=== PATIENT | male | born 1975 | race Caucasian/White ===

== ENCOUNTER 2021-09-20 17:27 | Inpatient (IN) | payer OTHER ==
[~2021-09-20] VITALS: Ht 157.5 cm; Wt 44.0 kg
[2021-09-20 17:37] VITALS: BP_SYST 118
--- NOTE | 2021-09-20 17:37 | NUR ---
pt. bib brother with concerns of pain from suprapubic catheter, pt. has 100.6 temp and tachycardic, concerned about infection
--- NOTE | 2021-09-20 17:53 | NUR ---
Pt. remains in WR, urine specimen obtained and sent to lab
[2021-09-20] MEDS ORDERED: cefTRIAXone 1 GM IVPB PREMIX 50 ML IV ONE ×2 (18:00→23:08)
--- NOTE | 2021-09-20 18:00 | NUR ---
ER at bedside examining patient.
--- NOTE | 2021-09-20 18:14 | NUR ---
Patient to ER bed 7 to gown for evaluation. Side rails up. Report given to Susie.
[2021-09-20 18:54] LABS: BILIRUBIN,URINE NEGATIVE (NEGATIVE); BLOOD, URINE 3+ (NEGATIVE); CLARITY/URINE TURBID (CLEAR); COLOR,URINE BROWN (YELLOW); GLUCOSE,URINE NEGATIVE (NEGATIVE); KETONES,URINE NEGATIVE (NEGATIVE); LEUKOCYTE ESTERASE ,URINE 3+ (NEGATIVE); NITRITE, URINE NEGATIVE (NEGATIVE); PH,URINE 6.5 (5.0-8.0); PROTEIN URINE 3+ (NEGATIVE); UROBILINOGEN,URINE 0.2 (0.2-1.0)
--- NOTE | 2021-09-20 18:54 | NUR ---
Pt bib brother from home, pt c/o urinary tract infection notes dysuria and burning sensation. Pt pain scale 8/10. PMH Dialysis left arm stoma
[2021-09-20 18:57] LABS: RBC,URINE >100 /HPF (0-3); WBC,URINE >100 /HPF (0-3)
[2021-09-20 18:58] LABS: BACTERIA,URINE MANY /HPF (None Seen)
--- NOTE | 2021-09-20 18:58 | NUR ---
Covid swab done and sent to lab.
--- NOTE | 2021-09-20 19:15 | NUR ---
# 20 gauge angiocath placed to RIGHT ac. Use of asceptic technique. Opsite placed over site. Blood return noted. Blood for lab drawn from site. Flushed with 10 cc of normal saline. No evidence of infiltration noted. Patient tolerated well.
[2021-09-20 19:44] LABS: BASOPHILS # (AUTO) 0.1 K/uL (0.0-0.2); BASOPHILS % (AUTO) 0.7 % (0.0-2.0); EOSINOPHILS % (AUTO) 0.3 % (0.0-4.0); HEMATOCRIT 32.6 % (36-54); HEMOGLOBIN 10.8 g/dL (14.0-18.0); LYMPHOCYTES # (AUTO) 0.4 K/uL (1.0-5.5); LYMPHOCYTES % (AUTO) 4.6 % (20.5-51.5); MEAN CORPUSCULAR HEMOGLOBIN 30 pg (27-31); MEAN CORPUSCULAR HGB CONC 33 % (32-36); MEAN CORPUSCULAR VOLUME 90 fL (79.0-98.0); MONOCYTES # (AUTO) 0.6 K/uL (0.0-1.0); MONOCYTES % (AUTO) 7.4 % (1.7-9.3); NEUTROPHILS # (AUTO) 7.3 K/uL (1.8-7.7); PLATELET COUNT (AUTO) 193 K/uL (130-430); RED BLOOD CELL COUNT(AUTO) 3.63 MIL/uL (4.2-6.2); RED CELL DISTRIBUTION WIDTH 14.8 % (9.0-15.0); WHITE BLOOD COUNT (AUTO) 8.4 K/uL (4.8-10.8)
[2021-09-20 19:48] LABS: POTASSIUM 5.3 mmol/L (3.5-5.1)
[2021-09-20 19:52] LABS: CALCIUM 6.3 mg/dL (8.4-11.0)
[2021-09-20 19:53] LABS: CREATININE 10.4 mg/dL (0.55-1.30)
[2021-09-20 20:06] LABS: ALBUMIN 3.2 g/dL (3.4-4.8); TOTAL BILIRUBIN 0.3 mg/dL (0.0-1.0)
--- NOTE | 2021-09-20 20:28 | NUR ---
Admit bed requested Patient will be admitted to care of . Admitted to MED SURG unit. Diagnosis UTI/SEPSIS Inpatient (Yes or No) YES Orientation concerns or request close to nursing station (Yes or No) NO Covid Status - From Home (Yes or if No enter name of facility) Y Requires Dialysis (Yes or No) YES
[2021-09-20] MEDS: cefTRIAXone 1 GM in D5W 50 ML IV SCH (21:09)
[2021-09-20] MEDS: KCL 20 mEq in D5/0.45NS 1000mL 1,000 ML IV SCH ×2 (21:17→21:55)
--- NOTE | 2021-09-20 21:53 | NUR ---
Patient will be admitted to care of MD Villagomez. Admitted to MED SURG unit. Will go to room 133A. Belongings list completed. Complete and up to date summary report printed. SBAR report given at bedside to CLIFF Sol with opportunity for questions.
--- NOTE | 2021-09-20 21:55 | NUR ---
ORDER RECEIVED FOR POTASSIUM 20 MEQ IVF; IVF HELD DUE TO POTASSIUM LEVEL ELEVATED AT 5.3 MD KEITH PAGED. ENDORSED TO RECEIVING NURSE IN [facility]SURGE TO FOLLOW UP.
--- NOTE | 2021-09-20 22:10 | NUR ---
ADMISSION NOTE Received patient from ER via wheel chair. Patient admitted with diagnosis of UTI,SEPSIS. Patient is awake, alert, oriented X 4. Patient oriented to hospital room, call light, toileting, pain management and safety-teach back done. Patient informed that Trung Kurtz will be Noc shift nurse and that their room number is 133A. Personal belongings checked and Belongings List documented. Call light within reach.
[2021-09-20 22:17] VITALS: BP_SYST 148
[2021-09-20] MEDS ORDERED: NALOXONE HCL 0.4 MG/ML AMP (NARCAN) IVP PRN (22:30)
--- NOTE | 2021-09-20 22:30 | NUR ---
Dr. Poole is in the facility and doing round. was updated on patient current labs, and doctor visited the patient and assessed him at bed side. Dr. Poole updated patient orders.
[2021-09-20 22:53] VITALS: BP_SYST 148
[2021-09-20] MEDS: HYDROcodone/ACETAMIN 5-325 MG TAB (NORCO/ VICODIN) PO PRN (22:58)
--- NOTE | 2021-09-21 04:58 | NUR ---
CONSULTATION PAGED/CALLED Reason for Consultation: RENAL FAILURE Person Who was Notified: MINH Consulting Physician: TAWNY Pallet Stone Positioner Specialty: Ordering Physician: INNA
--- NOTE | 2021-09-21 06:58 | NUR ---
CLOSING NOTES: Patient is in bed resting no s/s of distress is noted at this time, Chest rise is even and unlabored on RA. Patient is able to communicate needs and denies any pain or discomfort at this time. All current shift needs have been met and safety protocols are in place. Will differ current care to AM shift for continuity of care.
[2021-09-21 07:39] LABS: BASOPHILS % (AUTO) 0.6 % (0.0-2.0); EOSINOPHILS # (AUTO) 0.1 K/uL (0.0-0.4); EOSINOPHILS % (AUTO) 2.1 % (0.0-4.0); HEMOGLOBIN 9.7 g/dL (14.0-18.0); LYMPHOCYTES # (AUTO) 0.8 K/uL (1.0-5.5); LYMPHOCYTES % (AUTO) 10.6 % (20.5-51.5); MEAN CORPUSCULAR HEMOGLOBIN 29 pg (27-31); MEAN CORPUSCULAR HGB CONC 33 % (32-36); MEAN CORPUSCULAR VOLUME 90 fL (79.0-98.0); MONOCYTES # (AUTO) 0.8 K/uL (0.0-1.0); MONOCYTES % (AUTO) 10.5 % (1.7-9.3); NEUTROPHILS # (AUTO) 5.5 K/uL (1.8-7.7); NEUTROPHILS % (AUTO) 76.2 % (40.0-70.0); PLATELET COUNT (AUTO) 158 K/uL (130-430); RED BLOOD CELL COUNT(AUTO) 3.32 MIL/uL (4.2-6.2); RED CELL DISTRIBUTION WIDTH 14.5 % (9.0-15.0); WHITE BLOOD COUNT (AUTO) 7.2 K/uL (4.8-10.8)
[2021-09-21 08:00] VITALS: BP_SYST 123
--- NOTE | 2021-09-21 08:00 | NUR ---
Initial Note Patient in bed, awake, alert, and oriented. Obtained VS within the norm. No complaints of pain. No distress noted. Patient is eating breakfast. Safety Precautions in place and call light within reach.
[2021-09-21 08:03] LABS: CALCIUM 6.2 mg/dL (8.4-11.0); CREATININE 10.57 mg/dL (0.55-1.30)
--- NOTE | 2021-09-21 11:00 | NUR ---
Consult Dr. Grider see pt ordered to urology consult.
--- NOTE | 2021-09-21 11:10 | NUR ---
CONSULT: UROLOGY SUPRAPUBIC CATHETER NOT WORKING DR. MARLENY SIMMONS S/W: DORIS, OFFICE STAFF
[2021-09-21 12:09] VITALS: BP_SYST 109
[2021-09-21] MEDS: HYDROcodone/ACETAMIN 5-325 MG TAB (NORCO/ VICODIN) PO PRN ×2 (15:21→21:18)
--- NOTE | 2021-09-21 16:00 | NUR ---
Notes Patient has been cleaned and repositioned. States pain 10/19. Medicated. Safety precautions in place and aware to call for assistance. Call light in hand.
--- NOTE | 2021-09-21 16:10 | NUR ---
Notes Patient on dialysis.
[2021-09-21 16:11] VITALS: BP_SYST 112
--- NOTE | 2021-09-21 18:56 | NUR ---
closing notes patient is still on dialysis, unable to empty suprapubic catheter at this time. will endorse. dialysis output 1.5L.
[2021-09-21 19:00] VITALS: BP_SYST 134
[2021-09-21 20:00] VITALS: BP_SYST 134
[2021-09-22 00:27] VITALS: BP_SYST 135
[2021-09-22] MEDS: HYDROcodone/ACETAMIN 5-325 MG TAB (NORCO/ VICODIN) PO PRN ×3 (12:45→23:28)
--- NOTE | 2021-09-22 15:26 | NUR ---
Dietitian Recommendations * Regular diet, Ensure Enlive BID (ONS yields 700 kcal/day, 40 gm protein/day) * Encourage increase PO intakes LP, RD Please refer to Nutrition Assessment for details. Addendum: 09/22/21 at [address] Amended: Links added. Addendum: 09/22/21 at [address] CORRECTION: Dietitian Recommendations * Continue Regular diet, FR 1200, PRO 60 gms * Encourage increase PO intakes LP, RD Please refer to Nutrition Assessment for details.
[2021-09-22] MEDS: cefTRIAXone 1 GM in D5W 50 ML IV SCH ×2 (21:30→23:30)
[2021-09-22] MEDS: ACETAMINOPHEN 325 MG TABLET PO PRN (23:27)
[2021-09-23 00:17] VITALS: BP_SYST 120
--- NOTE | 2021-09-23 01:02 | NUR ---
PT REFUSED THE REMOVAL OF HIS SUPRA-PUBIC CATHETER STATING HE WANTS TO WANT UNTIL TOMORROW. I EXPLAINED AGAIN TO MAKE SURE PT UNDERSTOOD I WAS NOT TALKING ABOUT REMOVING HIS HERNANDEZ. PT MADE IT CLEAR TO ME THAT HE UNDERSTOOD WHAT I WAS SAYING. DINA GIMENEZ RN
[2021-09-23 07:55] VITALS: BP_SYST 122
[2021-09-23 08:00] VITALS: BP_SYST 122
--- NOTE | 2021-09-23 08:55 | NUR ---
RECEIVED PT LYING IN BED, NO DISTRESS NOTED, DENIES PAIN. SUPRA PUBIC CATH INTACT. F/C INTACT CLEAR EFRAIN URINE STAT LOCK ON. IV SITE TO RT AC SITE CDI, AV SHUNT TO LT FA +BRUT AND THRILL. Addendum: 09/23/21 at 1056 by Yg business support specialist SUPRA PUBIC CATH REMOVED PER DR SIMMONS. NO DRAINAGE NOTED, INSERTION SITE CDI, COVER WITH A GAUZE. Addendum: 09/23/21 at 1606 by Yg business support specialist [id number]: RECEIVED CRITICAL VALUE: ESBL URINE CX. PAGED DR KEITH [phone]. LEFT MASSAGE WITH CALL CENTER [phone]
[2021-09-23 16:45] VITALS: BP_SYST 115
[2021-09-23] MEDS: CALCIUM ACETATE 667 MG CAP PO SCH (18:22)
--- NOTE | 2021-09-23 19:25 | NUR ---
Opening note Received report from CLIFF Laboy. Patient is awake, AOx4 resting in bed, no distress. Nonlabored breathing on room air. IV to RAC is SL. He has a crowe catheter drainage bag to gravity, collecting pink-tinged urine. Bed is locked in lowest position, side rails up, and bed alarm on. Updated board and he was instructed on use of call light.
[2021-09-23 20:00] VITALS: BP_SYST 111
[2021-09-23] MEDS: ACETAMINOPHEN 325 MG TABLET PO PRN (21:05)
--- NOTE | 2021-09-23 21:08 | NUR ---
HEADACHE / TYLENOL Patient reports mild headache, Tylenol administered as ordered. He was reminded of fluid restriction and was given tabs with a cup of water. measured 100ml. Temp was 100.1 temporal scan abd he reports he wants AC on d/t room feels hot. Will ask security to adjust temp. Call light w/in reach, tm
--- NOTE | 2021-09-23 22:15 | NUR ---
reassess Patient reports no longer has headache. Rechecked temp and temporal scan indicates 99.3.
[2021-09-23] MEDS ORDERED: MEROPENEM 500 MG VIAL IV ONE (22:29)
[2021-09-23] MEDS: MEROPENEM 500 MG in NS 50 ML IV SCH (22:42)
--- NOTE | 2021-09-23 22:42 | NUR ---
Antibiotic New antibiotic, Merrem, administered as ordered. Reviewed side effects and he verbalized understanding. Infusing well, no s/sx of infiltration.
[2021-09-24 00:27] VITALS: BP_SYST 102
--- NOTE | 2021-09-24 02:45 | NUR ---
rounds Patient is awake, resting in bed. No distress and wants AC on, will call security. Safety and isolation precautions in place.
[2021-09-24] MEDS: MEROPENEM 500 MG in NS 50 ML IV SCH ×3 (06:39→22:03)
--- NOTE | 2021-09-24 06:45 | NUR ---
med, lab-tech due antibiotic administered, infusing well. reviewed side effects and he verbalized understanding. cartographic technician at bedside for blood draw.
[2021-09-24 08:02] LABS: PHOSPHORUS 7.9 mg/dL (2.7-4.5); POTASSIUM 5.1 mmol/L (3.5-5.1)
[2021-09-24 08:08] LABS: CALCIUM 6.9 mg/dL (8.4-11.0); CREATININE 10.33 mg/dL (0.55-1.30)
[2021-09-24 08:24] VITALS: BP_SYST 121
[2021-09-24] MEDS: CALCIUM ACETATE 667 MG CAP PO SCH ×3 (09:47→17:53)
[2021-09-24 11:03] VITALS: BP_SYST 114
[2021-09-24 16:22] VITALS: BP_SYST 125
--- NOTE | 2021-09-24 17:39 | NUR ---
PATIENT IS STABLE HAD HD DONE TODAY, 1.5 LITERS OUT. ABX WAS ADMINISTERED TO TREAT UTI. PATIENT VITALS REMAINED NORMAL TODAY, NO FEVER, NO SOB, OR MALAISE. PLAN IS TO CONTINUE ABX TREATMENT FOR ESBL URINE. WILL CONTINUE TO MONITOR PATIENT FOR CHANGES IN INFECTION STATUS.
[2021-09-25] MEDS: MEROPENEM 500 MG in NS 50 ML IV SCH (05:45)
[2021-09-25 06:27] LABS: BASOPHILS # (AUTO) 0.1 K/uL (0.0-0.2); EOSINOPHILS # (AUTO) 0.4 K/uL (0.0-0.4); EOSINOPHILS % (AUTO) 4.7 % (0.0-4.0); HEMATOCRIT 33.8 % (36-54); HEMOGLOBIN 10.9 g/dL (14.0-18.0); LYMPHOCYTES # (AUTO) 0.6 K/uL (1.0-5.5); LYMPHOCYTES % (AUTO) 6.4 % (20.5-51.5); MEAN CORPUSCULAR HEMOGLOBIN 29 pg (27-31); MEAN CORPUSCULAR HGB CONC 32 % (32-36); MEAN CORPUSCULAR VOLUME 89 fL (79.0-98.0); MONOCYTES # (AUTO) 0.8 K/uL (0.0-1.0); MONOCYTES % (AUTO) 9.1 % (1.7-9.3); NEUTROPHILS % (AUTO) 78.8 % (40.0-70.0); PLATELET COUNT (AUTO) 239 K/uL (130-430); RED BLOOD CELL COUNT(AUTO) 3.81 MIL/uL (4.2-6.2); RED CELL DISTRIBUTION WIDTH 14.9 % (9.0-15.0); WHITE BLOOD COUNT (AUTO) 8.9 K/uL (4.8-10.8)
[2021-09-25 06:36] LABS: CALCIUM 8.4 mg/dL (8.4-11.0); CREATININE 7.38 mg/dL (0.55-1.30); POTASSIUM 4.2 mmol/L (3.5-5.1)
[2021-09-25 08:00] VITALS: BP_SYST 108
[2021-09-25] MEDS: CALCIUM ACETATE 667 MG CAP PO SCH ×3 (08:45→17:39)
[2021-09-25 12:00] VITALS: BP_SYST 92
--- NOTE | 2021-09-25 14:05 | NUR ---
Discharge Planning: DCP lm for Zofia Lyons [phone] at [facility] Ghazal/Дмитрий Grider making her aware patient needs home health and IV meds. DCP to follow up
[2021-09-25 16:00] VITALS: BP_SYST 126
[2021-09-25 20:00] VITALS: BP_SYST 99
--- NOTE | 2021-09-25 20:00 | NUR ---
Opening notes Pt AAOx4, VSS, no c/o pain. L arm AV shunt with good thrill and bruit. Hawley catheter draining to gravity with tamara urine. IV saline lock R.AC 20 clear and patent. Contact isolation maintained. Bed low, locked, siderails up x2, alarm on. To monitor.
--- NOTE | 2021-09-26 00:25 | NUR ---
Rounds Pt asleep, no s/s distress noted. Hawley catheter draining to gravity. CAll light within reach. Bed low, locked, siderails up x3. To monitor.
[2021-09-26 00:33] VITALS: BP_SYST 118
--- NOTE | 2021-09-26 05:50 | NUR ---
Closing notes Pt asleep, easily awakens, no s/s distress. L. arm AV shunt. Hawley catheter draining to gravity with tamara urine. IV saline lock R.AC 20 clear and patent. Pt to have HD today. Contact isolation maintained. Bed low, locked, siderails up x2, alarm on. To endorse to AM nurse.
[2021-09-26 08:00] VITALS: BP_SYST 104
[2021-09-26 08:21] LABS: CALCIUM 8.1 mg/dL (8.4-11.0); POTASSIUM 4.7 mmol/L (3.5-5.1)
[2021-09-26] MEDS: CALCIUM ACETATE 667 MG CAP PO SCH ×3 (08:23→17:53)
[2021-09-26 08:49] LABS: CREATININE 10.28 mg/dL (0.55-1.30)
[2021-09-26] MEDS ORDERED: MEROPENEM 500 MG in NS 50 ML IV SCH (09:00)
--- NOTE | 2021-09-26 09:03 | NUR ---
Discharge Planning: BART faxed pt referral to [facility] F#[phone] P#[phone] and [facility] F#[phone] P#[phone] BART to follow up. Addendum: 09/26/21 at 1533 by Lalitha SYKES [facility] P#[phone] per [facility]J patient accepted and [facility] P#[phone] medication will be delivered between 8pm and 10pm. BART made JIMMY at [facility] aware. [facility] nurse Deric communicated with home health contact JIMMY. BART made CAITLYN aware.
[2021-09-26 12:17] VITALS: BP_SYST 114
--- NOTE | 2021-09-26 15:33 | NUR ---
pt A/Ox4,vss,HD completed at bedside and removed 1.3L per HD nurse carmela d/c home with home health for IV antibiotic infusion per dr cruz.[facility] home health arranged per manager media heather.IV 20 gauge in right antecubital remains patent and intact and maintained in place for further IV antibiotic therapy also leaves crowe catheter in place per urology consult requests.d/c instruction given and explained to pt.pt verbalized understandings and said he will go to next HD on friday in [facility].family called and notified by patient for clam picker.
[2021-09-26 16:11] VITALS: BP_SYST 102
--- NOTE | 2021-10-09 09:35 | NUR ---
Water Supply Technician CLOTH SHEARER made a Post Discharge Follow Up Phone Call and spoke to former pt., Gume who stated he is making progress. Home Health comes to his home to assist with meds. and Gume has a follow up apt. with his Urologist, Dr. Jaime Reynoso on 10/10/21 at 10:15. Gume did not have any concerns.
== END 2021-09-26 18:30 | disposition home health service (06) | DRG 689 ==
LOC: SED 17:27 → SMU 20:23
PROVIDERS: ADMIT Family Medicine; ATTEND Family Medicine
PROC: 5A1D70Z Performance of Urinary Filtration, Intermittent, Less than 6 Hours Per Day (ICD-10-PCS; principal; 2021-09-21)
PROC: 5A1D70Z Performance of Urinary Filtration, Intermittent, Less than 6 Hours Per Day (ICD-10-PCS; 2021-09-23)
PROC: 5A1D70Z Performance of Urinary Filtration, Intermittent, Less than 6 Hours Per Day (ICD-10-PCS; 2021-09-25)
PROC: 0TPBX0Z Removal of Drainage Device from Bladder, External Approach (ICD-10-PCS; 2021-09-25)
PROC: 0TWBX0Z Revision of Drainage Device in Bladder, External Approach (ICD-10-PCS; 2021-09-25)
PROC: 0T9B70Z Drainage of Bladder with Drainage Device, Via Natural or Artificial Opening (ICD-10-PCS; 2021-09-25)
DX: N39.0 Urinary tract infection, site not specified (principal); N18.6 End stage renal disease; E87.2 Acidosis; I12.0 Hypertensive chronic kidney disease with stage 5 chronic kidney disease or end stage renal disease; F17.210 Nicotine dependence, cigarettes, uncomplicated; D64.9 Anemia, unspecified; E83.51 Hypocalcemia; N31.9 Neuromuscular dysfunction of bladder, unspecified; E11.22 Type 2 diabetes mellitus with diabetic chronic kidney disease; Z20.822 Contact with and (suspected) exposure to COVID-19; Z99.2 Dependence on renal dialysis; Z91.040 Latex allergy status; Z79.899 Other long term (current) drug therapy
CPT/HCPCS: 36415; 71045; 76376; 80048; 80053; 81000; 83605; 84100; 85025; 87040; 87086; 90935; 90937; 93005; 96374; 99291; J0696; J2185; J7060